=== PATIENT | male | born 1955 | race Caucasian/White ===

== ENCOUNTER 2018-01-19 06:14 | Emergency (ER) | payer OTHER ==
[~2018-01-19] VITALS: Ht 170.2 cm; Wt 72.7 kg
[~2018-01-19 06:14] MED LIST: APRESOLINE 25MG25 MG PO; ASPIRIN 81M81 MG/TA2 PO; FISH OIL500 MG PO; LOPRESSOR 550 MG/TAB PO; LOPRESSOR100 MG PO; MULTIPLE VITAMI1 CAP PO; NITROSTAT0.4 MG/TAB SL; NORVASC 5MG5 MG/TAB PO; TOPROL XL 25MG25 MG PO; ZESTRIL 20MG TA20 MG PO
[2018-01-19 06:25] VITALS: TEMP 98
[2018-01-19] MEDS ORDERED: PRINIVIL40 MG PO (06:28)
[2018-01-19] MEDS ORDERED: LIPITOR 40MG TA40 MG PO (06:37)
[2018-01-19 06:38] LABS: BASO # 0.1 (0.0-0.2); BASO % 0.6 % (0.0-2.0); EOS # 0.1 (0.0-0.7); EOS % 1.1 % (0-4.0); GRAN # 3.1 (1.4-6.5); GRAN % 34.8 % (42.2-75.2); HEMATOCRIT 46.8 % (42.0-52.0); LYMPH # 4.8 (1.2-3.4); LYMPH % 54.3 % (20.0-51.0); MEAN CELL VOLUME 85 fl (80.0-100.0); MEAN CORPUSCULAR HEMOGLOBIN 29 pg (27.0-31.0); MEAN CORPUSCULAR HGB CONC 34 g/dl (33.0-37.0); MEAN PLATELET VOLUME 10.6 fl (7.4-10.4); MONO # 0.8 (0.1-0.6); PLATELET COUNT 170 K/mm3 (130-400); RED BLOOD COUNT 5.51 M/mm3 (4.20-5.60); REDCELL DISTRIBUTION WIDTH-CV 13.6 % (11.5-14.5)
[2018-01-19 06:48] LABS: ALANINE AMINOTRANSFERASE 42 U/L (21-72); ALBUMIN 4.5 gm/dL (3.5-5.0); ALKALINE PHOSPHATASE 91 U/L (50-136); ANION GAP 11 mmol/L (7-16); AST,SGOT 32 U/L (15-37); BILIRUBIN,TOTAL 0.8 mg/dL (0.0-1.0); BLOOD UREA NITROGEN 16 mg/dL (9-20); CALCIUM 9.3 mg/dL (8.4-10.2); CARBON DIOXIDE 27 mmol/L (22-30); CHLORIDE 102 mmol/L (98-107); CREATININE, serum 0.79 mg/dL (0.66-1.25); GLUCOSE 97 mg/dL (74-106); POTASSIUM 3.6 mmol/L (3.4-5.0); SODIUM 140 mmol/L (137-145); TOTAL PROTEIN 7.8 gm/dL (6.4-8.2)
[2018-01-19 07:03] LABS: TROPONIN-I < 0.012 ng/mL (0.000-0.034)
[2018-01-19 08:20] VITALS: BP 125/92
[2018-01-19 08:25] LABS: MAGNESIUM 1.9 mg/dL (1.6-2.3)
[2018-01-19 08:40] VITALS: PULSE 136
== END 2018-01-19 08:44 | disposition short-term general hospital (02) ==
LOC: COL.ER 06:14
PROVIDERS: Emergency Medicine
DX: I48.91 Unspecified atrial fibrillation (principal); I10 Essential (primary) hypertension; E78.5 Hyperlipidemia, unspecified; Z87.891 Personal history of nicotine dependence; Z79.82 Long term (current) use of aspirin
CPT/HCPCS: J1650; J7030; J7050

== ENCOUNTER 2018-01-24 21:06 | Emergency (ER) | payer OTHER ==
[~2018-01-24] VITALS: Ht 170.2 cm; Wt 72.7 kg
[~2018-01-24 21:06] MED LIST changes: +LIPITOR 40MG TA40 MG PO; +PRINIVIL40 MG PO
[2018-01-24 21:09] VITALS: TEMP 98.7
[2018-01-24] MEDS ORDERED: ELIQUIS 5MG PO (21:24)
[2018-01-24 21:44] LABS: BASO % 0.2 % (0.0-2.0); EOS % 0.1 % (0-4.0); GRAN # 10.3 (1.4-6.5); GRAN % 73.6 % (42.2-75.2); HEMATOCRIT 42.5 % (42.0-52.0); HEMOGLOBIN 14.4 g/dl (13.5-18.0); LYMPH # 2.4 (1.2-3.4); LYMPH % 17.3 % (20.0-51.0); MEAN CELL VOLUME 85 fl (80.0-100.0); MEAN CORPUSCULAR HEMOGLOBIN 29 pg (27.0-31.0); MEAN CORPUSCULAR HGB CONC 34 g/dl (33.0-37.0); MEAN PLATELET VOLUME 10.7 fl (7.4-10.4); MONO # 1.2 (0.1-0.6); MONO % 8.4 % (1.7-9.3); PLATELET COUNT 186 K/mm3 (130-400); REDCELL DISTRIBUTION WIDTH-CV 13.6 % (11.5-14.5)
[2018-01-24 21:57] LABS: ALANINE AMINOTRANSFERASE 37 U/L (21-72); ALBUMIN 4.3 gm/dL (3.5-5.0); ALKALINE PHOSPHATASE 80 U/L (50-136); ANION GAP 12 mmol/L (7-16); AST,SGOT 25 U/L (15-37); BILIRUBIN,TOTAL 0.8 mg/dL (0.0-1.0); BLOOD UREA NITROGEN 18 mg/dL (9-20); C-REACTIVE PROTEIN 1.3 mg/dL (0.0-0.9); CARBON DIOXIDE 24 mmol/L (22-30); CHLORIDE 100 mmol/L (98-107); CREATININE, serum 0.73 mg/dL (0.66-1.25); GLUCOSE 106 mg/dL (74-106); POTASSIUM 3.8 mmol/L (3.4-5.0); SODIUM 136 mmol/L (137-145); TOTAL PROTEIN 7.5 gm/dL (6.4-8.2)
[2018-01-24 22:07] LABS: TROPONIN-I < 0.012 ng/mL (0.000-0.034)
[2018-01-24] MEDS ORDERED: NORCO 325 MG-51 TAB PO (22:57)
[2018-01-24 23:05] VITALS: BP 140/93; PULSE 68
== END 2018-01-24 23:23 | disposition home or self-care (01) ==
LOC: COL.ER 21:06
PROVIDERS: Emergency Medicine
DX: M54.6 Pain in thoracic spine (principal); M54.2 Cervicalgia; I48.91 Unspecified atrial fibrillation; E78.5 Hyperlipidemia, unspecified; I10 Essential (primary) hypertension; Z87.891 Personal history of nicotine dependence
CPT/HCPCS: J1170; J2405; J7030; Q9967

== ENCOUNTER 2018-04-24 19:57 | Emergency (ER) | payer OTHER ==
[~2018-04-24 19:57] MED LIST changes: +ELIQUIS 5MG PO; +NORCO 325 MG-51 TAB PO
[2018-04-24 20:22] VITALS: TEMP 97.4
[2018-04-24] MEDS ORDERED: LOPRESSOR 225 MG/TAB PO (20:49)
[2018-04-24] MEDS ORDERED: MULTAQ400 MG PO (20:49)
[2018-04-24 21:22] LABS: BASO % 0.5 % (0.0-2.0); EOS # 0.1 (0.0-0.7); EOS % 0.8 % (0-4.0); HEMATOCRIT 41.8 % (42.0-52.0); HEMOGLOBIN 14.3 g/dl (13.5-18.0); LYMPH # 2.7 (1.2-3.4); LYMPH % 35.5 % (20.0-51.0); MEAN CELL VOLUME 86 fl (80.0-100.0); MEAN CORPUSCULAR HEMOGLOBIN 29 pg (27.0-31.0); MEAN CORPUSCULAR HGB CONC 34 g/dl (33.0-37.0); MEAN PLATELET VOLUME 10.9 fl (7.4-10.4); MONO # 0.8 (0.1-0.6); MONO % 10.1 % (1.7-9.3); PLATELET COUNT 157 K/mm3 (130-400); RED BLOOD COUNT 4.87 M/mm3 (4.20-5.60); REDCELL DISTRIBUTION WIDTH-CV 13.1 % (11.5-14.5)
[2018-04-24 21:32] LABS: ALBUMIN 4.1 gm/dL (3.5-5.0); BILIRUBIN,TOTAL 0.5 mg/dL (0.0-1.0); CALCIUM 9.1 mg/dL (8.4-10.2); CREATININE, serum 0.93 mg/dL (0.66-1.25); POTASSIUM 3.9 mmol/L (3.4-5.0)
[2018-04-24 22:13] VITALS: BP 150/89; PULSE 75
== END 2018-04-24 22:14 | disposition home or self-care (01) ==
LOC: COL.ER 19:57
PROVIDERS: Emergency Medicine
DX: I49.3 Ventricular premature depolarization (principal); R00.2 Palpitations; I48.91 Unspecified atrial fibrillation

== ENCOUNTER 2018-10-25 09:26 | Outpatient (CLI) | payer OTHER ==
[~2018-10-25] VITALS: Ht 167.6 cm; Wt 64.4 kg
[~2018-10-25 09:26] MED LIST changes: -LIPITOR 40MG TA40 MG PO; +LIPITOR20 MG PO; +LOPRESSOR 225 MG/TAB PO; +MULTAQ400 MG PO
[2018-10-25 10:08] VITALS: BP 146/100; PULSE 68; TEMP 97.8
[2018-10-25] MEDS ORDERED: ASPIRIN 81M81 MG/TA2 PO (10:16)
[2018-10-25] MEDS ORDERED: ROXICODONE 55 MG/TAB PO (10:17)
[2018-10-25] MEDS ORDERED: TYLENOL 325MG325 MG PO (10:23)
[2018-10-25] MEDS ORDERED: CEPHALEXIN500 M1 PO (10:25)
[2018-10-25 12:30] VITALS: BP 134/90; PULSE 71
--- NOTE | 2018-10-25 12:41 | NUR ---
Discharge instructions given to pt.Pt verbalizes understanding.Pt escortedout by this nurse.
== END 2018-10-25 12:45 | disposition home or self-care (01) ==
LOC: COL.CAR 09:26
DX: I48.0 Paroxysmal atrial fibrillation (principal); I34.0 Nonrheumatic mitral (valve) insufficiency; I25.10 Atherosclerotic heart disease of native coronary artery without angina pectoris; I10 Essential (primary) hypertension; E78.5 Hyperlipidemia, unspecified; Z79.01 Long term (current) use of anticoagulants; Z79.82 Long term (current) use of aspirin; Z82.49 Family history of ischemic heart disease and other diseases of the circulatory system; I49.3 Ventricular premature depolarization
CPT/HCPCS: C1764

== ENCOUNTER 2018-11-22 15:50 | Outpatient (RCR) | payer OTHER ==
[~2018-11-22 15:50] MED LIST changes: +CEPHALEXIN500 M1 PO; +ROXICODONE 55 MG/TAB PO; +TYLENOL 325MG325 MG PO
== END 2018-12-03 16:12 | disposition home or self-care (01) ==
LOC: COL.CR 15:50
DX: Z48.812 Encounter for surgical aftercare following surgery on the circulatory system (principal); Z98.890 Other specified postprocedural states; I08.1 Rheumatic disorders of both mitral and tricuspid valves

== ENCOUNTER 2019-08-07 05:31 | Day surgery (SDC) | payer OTHER ==
[~2019-08-07] VITALS: Ht 170.2 cm; Wt 65.5 kg
[2019-08-07 06:13] VITALS: BP 179/95; PULSE 60; TEMP 97.1
[2019-08-07 08:10] VITALS: BP 105/63; PULSE 67; TEMP 98.4
--- NOTE | 2019-08-07 08:10 | NUR ---
Patient [place] [facility] [place] arousable to name. Patient montior applied, vitals stable. Dressing on right groin, clean/dry/intact. Patient denies pain or nausea. Patient resting comfortably.
[2019-08-07] MEDS ORDERED: NORCO 325 MG-51 TAB PO (08:15)
[2019-08-07 08:30] VITALS: BP 107/70; PULSE 62
[2019-08-07 08:45] VITALS: BP 110/70; PULSE 62
--- NOTE | 2019-08-07 08:45 | NUR ---
Patient tolerates water and apple sauce without any nausea, denies pain, vitals stable. Patient reports he feels great and is ready to go home whenever. Patient's daughter at bedside.
[2019-08-07 09:00] VITALS: BP 124/80; PULSE 60
--- NOTE | 2019-08-07 09:15 | NUR ---
Dismissal instructions gone over with patient. Patient verbalizes understanding and all questions answered.
--- NOTE | 2019-08-07 09:25 | NUR ---
Patient discharged to private vehicle that his daughter is driving. Patient and family leave thanking staff for services.
== END 2019-08-07 09:25 | disposition home or self-care (01) ==
LOC: SDCO 05:31
DX: K40.90 Unilateral inguinal hernia, without obstruction or gangrene, not specified as recurrent (principal); I25.10 Atherosclerotic heart disease of native coronary artery without angina pectoris; I10 Essential (primary) hypertension; Z86.79 Personal history of other diseases of the circulatory system; Z79.899 Other long term (current) drug therapy; Z79.82 Long term (current) use of aspirin; Z88.8 Allergy status to other drugs, medicaments and biological substances; I05.9 Rheumatic mitral valve disease, unspecified
CPT/HCPCS: J0690; J1100; J1885; J2704; J3010; J7120

== ENCOUNTER 2021-10-13 05:29 | Day surgery (SDC) | payer OTHER ==
[~2021-10-13] VITALS: Ht 170.2 cm; Wt 68.9 kg
[2021-10-13 06:22] VITALS: BP 183/99; PULSE 65; TEMP 97.5
[2021-10-13 08:15] VITALS: BP 93/59; PULSE 58; TEMP 97.4
--- NOTE | 2021-10-13 08:15 | NUR ---
PT TO BAY 8 PER CART FROM OR. RECEIVED REPORT FROM INSTRUMENTATION SPECIALIST AND FERMENTATION ENGINEER. DRESSING C/D/I. PT DENIES ANY DISCOMFORT AT THIS TIME. CALL LIGHT WITHIN REACH. WILL CONTINUE TO MONITOR PT.
[2021-10-13] MEDS ORDERED: NORCO 325 MG-51 TAB PO (08:21)
[2021-10-13 08:30] VITALS: BP 110/74; PULSE 56
--- NOTE | 2021-10-13 08:30 | NUR ---
PT CONTINUE TO REST COMFORTABLY. DENIES ANY NEEDS AT THIS TIME. WILL CONTINUE TO MONITOR.
[2021-10-13 08:45] VITALS: BP 110/72; PULSE 53
--- NOTE | 2021-10-13 08:45 | NUR ---
PT CONTINUES TO DENY ANY NEEDS. WILL CONTINUE TO MONITOR.
[2021-10-13 09:00] VITALS: BP 124/78; PULSE 53
--- NOTE | 2021-10-13 09:00 | NUR ---
PT DENIES ANY PAIN OR DISCOMFORT AT THIS TIME. REQUESTING WATER AND MUFFIN
--- NOTE | 2021-10-13 09:15 | NUR ---
PT TOLERATING WATER AND MUFFIN. DENIES ANY DISCOMFORT OR PAIN AT THIS TIME.
[2021-10-13 09:30] VITALS: BP 139/87; PULSE 52
--- NOTE | 2021-10-13 09:30 | NUR ---
PT STABLE. PT STATES HE IS READY FOR DC.
--- NOTE | 2021-10-13 09:40 | NUR ---
IV DC'D. PT TOLERATED WELL.
--- NOTE | 2021-10-13 09:50 | NUR ---
DISCHARGE EDUCATION COMPLETED WITH PT. VERBALIZED UNDERSTANDING OF HOME AND FOLLOW UP CARE. ALL QUESTIONS ANSWERED. DISCHARGE PAPERWORK GIVEN TO PT.
--- NOTE | 2021-10-13 10:15 | NUR ---
PT OFF UNIT PER WHEELCHAIR. PT DISCHARGE TO HOME WITH PER PERSONAL VEHICLE.
== END 2021-10-13 10:15 | disposition home or self-care (01) ==
LOC: SDCO 05:29
DX: K40.91 Unilateral inguinal hernia, without obstruction or gangrene, recurrent (principal)
CPT/HCPCS: C1781; J0690; J2704; J3010; J7120

== ENCOUNTER 2023-10-08 11:02 | Emergency (ER) | payer MEDICARE, OTHER ==
[~2023-10-08] VITALS: Ht 167.6 cm; Wt 63.6 kg
[~2023-10-08 11:02] MED LIST changes: +BETAPACE 80MG80 MG PO; +MAGNESIUM200 MG PO
[2023-10-08 11:17] VITALS: TEMP 97.7
[2023-10-08] MEDS ORDERED: Metoprolol Tartrate 5 MG/5 ML VIAL IV ONE ×2 (12:15→13:15)
[2023-10-08] MEDS ORDERED: NS 1,000 ML IV ONE (12:15)
[2023-10-08 12:18] LABS: BASO % 0.4 % (0.0-2.0); EOS % 0.6 % (0.0-4.0); GRAN # 4.3 K/mm3 (1.4-6.5); GRAN % 59.3 % (42.2-75.2); HEMATOCRIT 47.8 % (42.0-52.0); HEMOGLOBIN 15.6 g/dl (13.5-18.0); LYMPH # 2.1 K/mm3 (1.2-3.4); LYMPH % 28.8 % (20.0-51.0); MEAN CELL VOLUME 90 fl (80.0-100.0); MEAN CORPUSCULAR HEMOGLOBIN 29 pg (27-31); MEAN CORPUSCULAR HGB CONC 33 g/dl (33.0-37.0); MEAN PLATELET VOLUME 12.3 fl (7.4-10.4); MONO # 0.8 K/mm3 (0.1-0.6); MONO % 10.6 % (1.7-9.3); PLATELET COUNT 149 K/mm3 (130-400); RED BLOOD COUNT 5.32 M/mm3 (4.20-5.60); REDCELL DISTRIBUTION WIDTH-CV 13.4 % (11.5-14.5)
[2023-10-08 12:32] LABS: ALANINE AMINOTRANSFERASE 26 U/L (0-55); ALKALINE PHOSPHATASE 108 U/L (40-150); ANION GAP 8 mmol/L (7-16); AST,SGOT 28 U/L (5-34); BILIRUBIN,TOTAL 0.7 mg/dL (0.2-1.2); BLOOD UREA NITROGEN 18 mg/dL (8-26); CALCIUM 9.4 mg/dL (8.4-10.2); CHLORIDE 104 mEq/L (98-107); CREATININE, serum 0.85 mg/dL (0.72-1.25); GLUCOSE 81 mg/dL (70-99); SODIUM 138 mEq/L (136-145); TOTAL PROTEIN 7.1 g/dl (6.2-8.1)
[2023-10-08 12:38] LABS: TROPONIN-I < 0.010 ng/mL (0.00-0.033)
[2023-10-08 13:48] VITALS: BP 132/91; PULSE 98
== END 2023-10-08 13:41 | disposition home or self-care (01) ==
LOC: COL.ER 11:02
PROVIDERS: Physician Assistant
DX: I48.0 Paroxysmal atrial fibrillation (principal); Z79.01 Long term (current) use of anticoagulants; Z79.899 Other long term (current) drug therapy; Z98.890 Other specified postprocedural states
CPT/HCPCS: J7030